=== PATIENT | male | born 1985 | race Hispanic/Latino ===

== ENCOUNTER → 2021-07-22 | Outpatient (CLI) | payer OTHER | LOC: M RAD 17:41 | PROVIDERS: ATTEND Nurse Practitioner Family | DX: M43.06 Spondylolysis, lumbar region (principal) ==

== ENCOUNTER → 2021-08-02 | Outpatient (CLI) | payer OTHER ==
[2021-08-02 16:24] LABS: PLATELET COUNT, AUTOMATED 214 10^3/uL (150-450)
[2021-08-02 16:37] LABS: INR 0.87; PROTHROMBIN TIME 12.2 SECONDS (12.7-14.5)
[2021-08-02 17:37] LABS: COLLAGEN EPINEPHRINE 151 SECONDS (74-162)
== END ==
LOC: M LAB 15:57
PROVIDERS: ATTEND Physician Assistant
DX: M48.061 Spinal stenosis, lumbar region without neurogenic claudication (principal)

== ENCOUNTER 2022-06-06 09:10 | Emergency (ER) | payer OTHER ==
[~2022-06-06] VITALS: Ht 167.6 cm; Wt 83.8 kg
[2022-06-06] MEDS ORDERED: IBUPROFEN 800 MG TAB PO ONE (11:50)
[2022-06-06] MEDS ORDERED: IBUP80TA PO (11:53)
[2022-06-06 12:07] VITALS: BP 123/73
== END 2022-06-06 13:08 | disposition home or self-care (01) ==
LOC: M ED 09:10
DX: S83.92XA Sprain of unspecified site of left knee, initial encounter (principal); M25.462 Effusion, left knee; M54.50 Low back pain, unspecified; Z88.0 Allergy status to penicillin; Z79.1 Long term (current) use of non-steroidal anti-inflammatories (NSAID)

== ENCOUNTER 2022-07-11 13:20 | Emergency (ER) | payer OTHER ==
[~2022-07-11] VITALS: Ht 167.6 cm; Wt 78.2 kg
[~2022-07-11 13:20] MED LIST: IBUP80TA PO
[2022-07-11 14:10] LABS: BASO % 0.5 % (0.0-1.0); EOS # 0.1 10^3/uL (0.0-0.5); EOS % 1.6 % (0.0-3.0); HEMATOCRIT 41.8 % (42.0-52.0); HEMOGLOBIN 14.4 g/dl (13.5-17.5); LYMPH # 1.9 10^3/uL (1.5-5.0); LYMPH % 21.4 % (24.0-44.0); MEAN CORPUSCULAR HEMOGLOBIN 30.6 pg (27.0-33.0); MEAN CORPUSCULAR HGB CONC 34.4 g/dl (32.0-36.5); MEAN CORPUSCULAR VOLUME 88.9 fl (80.0-96.0); MONO # 0.7 10^3/uL (0.0-0.8); MONO % 7.7 % (2.0-8.0); NEUTROPHILS % 68.5 % (36.0-66.0); PLATELET COUNT, AUTOMATED 199 10^3/uL (150-450); WHITE BLOOD COUNT 8.7 10^3/uL (4.0-10.0)
[2022-07-11] MEDS ORDERED: BOOSTRIX/ADACEL VACCINE (DIPHTH/PERTUSS/ACELL/TETANUS) 0.5ML SYR IM ONE (14:20)
[2022-07-11] MEDS ORDERED: metroNIDAZOLE 500 MG in IV 1 EA IV ONE (14:20)
[2022-07-11] MEDS ORDERED: cefTRIAXone SOD 1 GM in D5W MINI-BAG PLUS 50 ML IV ONE (14:20)
[2022-07-11 14:39] LABS: ALBUMIN 3.9 G/DL (3.2-5.2); ALKALINE PHOSPHATASE 84 U/L (46-116); ALT/SGPT 28 U/L (7.0-40); AST/SGOT 15 U/L (<34); BILIRUBIN,TOTAL 0.6 MG/DL (0.3-1.2); BLOOD UREA NITROGEN 17 MG/DL (9-23); CALCIUM LEVEL 8.3 MG/DL (8.5-10.1); CARBON DIOXIDE LEVEL 27 MMOL/L (20-31); CHLORIDE LEVEL 108 MMOL/L (98-107); CREATININE FOR GFR 1.15 MG/DL (0.70-1.30); GLOMERULAR FILTRATION RATE > 60.0 (>60); GLUCOSE, FASTING 91 MG/DL (60-100); POTASSIUM SERUM 4.2 MMOL/L (3.5-5.1); SODIUM LEVEL 141 MMOL/L (136-145); TOTAL PROTEIN 6.8 G/DL (5.7-8.2)
[2022-07-11 15:33] VITALS: BP 120/74
[2022-07-11] MEDS ORDERED: CEFU50TA PO (16:53)
[2022-07-11] MEDS ORDERED: METR-265 PO (16:53)
== END 2022-07-11 17:07 | disposition home or self-care (01) ==
LOC: EDBD 13:20 → M ED 13:20
DX: S61.431A Puncture wound without foreign body of right hand, initial encounter (principal); S61.442A Puncture wound with foreign body of left hand, initial encounter; S80.811A Abrasion, right lower leg, initial encounter; W55.01XA Bitten by cat, initial encounter; Y92.019 Unspecified place in single-family (private) house as the place of occurrence of the external cause; Y93.K9 Activity, other involving animal care; Y99.8 Other external cause status
CPT/HCPCS: 80053; 83605; 85025; 87040; 90715; 96365; 96367; 99284; J0696; S0020

== ENCOUNTER 2022-07-12 09:37 | Emergency (ER) | payer OTHER ==
[~2022-07-12] VITALS: Ht 167.6 cm; Wt 82.3 kg
[~2022-07-12 09:37] MED LIST changes: +CEFU50TA PO; +METR-265 PO
[2022-07-12 11:11] VITALS: BP 136/79
[2022-07-13] MEDS ORDERED: HYDR-3713 PO (15:28)
== END 2022-07-12 11:13 | disposition home or self-care (01) ==
LOC: M ED 09:37
DX: L03.114 Cellulitis of left upper limb (principal); M54.9 Dorsalgia, unspecified; Z88.0 Allergy status to penicillin; Z91.013 Allergy to seafood; Z79.899 Other long term (current) drug therapy

== ENCOUNTER 2022-07-13 12:44 | Emergency (ER) | payer OTHER ==
[~2022-07-13] VITALS: Ht 167.6 cm; Wt 82.7 kg
[2022-07-13] MEDS ORDERED: NORCO, ANEXSIA 5/325MG TABLET (HYDROcodone/ACETAMINOPHEN) PO ONE (13:45)
[2022-07-13 14:14] LABS: BASO % 0.5 % (0.0-1.0); EOS # 0.2 10^3/uL (0.0-0.5); HEMATOCRIT 42.6 % (42.0-52.0); HEMOGLOBIN 14.5 g/dl (13.5-17.5); LYMPH # 1.8 10^3/uL (1.5-5.0); LYMPH % 23.5 % (24.0-44.0); MEAN CORPUSCULAR HEMOGLOBIN 30.3 pg (27.0-33.0); MEAN CORPUSCULAR VOLUME 88.9 fl (80.0-96.0); MONO # 0.4 10^3/uL (0.0-0.8); MONO % 5.6 % (2.0-8.0); NEUTROPHILS # 5.1 10^3/uL (1.5-8.5); NEUTROPHILS % 68.3 % (36.0-66.0); PLATELET COUNT, AUTOMATED 213 10^3/uL (150-450); RED BLOOD COUNT 4.79 10^6/uL (4.30-6.10); WHITE BLOOD COUNT 7.5 10^3/uL (4.0-10.0)
[2022-07-13 14:45] LABS: ERYTHROCYTE SEDIMENTATION RATE 10 mm/hr (0-15)
[2022-07-13] MEDS ORDERED: HYDR-3713 PO (15:28)
[2022-07-13 15:31] VITALS: BP 118/76
== END 2022-07-13 15:45 | disposition home or self-care (01) ==
LOC: M ED 12:44
DX: S61.442A Puncture wound with foreign body of left hand, initial encounter (principal); W55.01XA Bitten by cat, initial encounter; Y92.019 Unspecified place in single-family (private) house as the place of occurrence of the external cause; Y93.89 Activity, other specified; Y99.8 Other external cause status